=== PATIENT | male | born 1970 | race Caucasian/White ===

== ENCOUNTER 2020-01-04 22:22 | Emergency (ER) | payer BC ==
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
== END 2020-01-04 23:52 | disposition home or self-care (01) ==
LOC: MW.ED 22:22
DX: S43.101A Unspecified dislocation of right acromioclavicular joint, initial encounter (principal); X50.9XXA Other and unspecified overexertion or strenuous movements or postures, initial encounter; Y93.72 Activity, wrestling
CPT/HCPCS: 73030-26-RT; 73030-RT; 99283; 99283-25